=== PATIENT | female | born 1940 ===

== ENCOUNTER 2020-07-30 08:45 | Outpatient (REF) | payer MEDICARE, SELFPAY ==
[2020-07-30 12:30] LABS: Alanine Aminotransferase 15 U/L (0-31); Albumin Level 4.2 g/dL (3.5-5.0); Alkaline Phosphatase 103 U/L (39-117); Anion Gap 13 (12-20); Aspartate Amino Transferase 18 U/L (5-31); Bilirubin Total 0.8 mg/dL (0.0-1.0); Blood Urea Nitrogen 12 mg/dL (9-16); Calcium 9.4 mg/dL (8.4-10.2); Carbon Dioxide 27 mmol/L (22-29); Chloride 104 mmol/L (96-108); Cholesterol 246 mg/dL; Estimated Glomerular Filt Rate > 60; Glucose Fasting 96 mg/dL (60-99); HDL Cholesterol 76 mg/dL; LDL Cholesterol Calculated 153 mg/dl; Potassium 4.1 mmol/L (3.3-5.1); Sodium 140 mmol/L (135-145); Total Protein 6.9 g/dL (6.5-8.0); Triglycerides 89 mg/dL
== END 2020-07-30 08:46 | disposition home or self-care (01) ==
LOC: HO.HMGCLDS 08:45
PROVIDERS: PCP Internal Medicine; Visit Provider Internal Medicine
DX: E78.00 Pure hypercholesterolemia, unspecified (principal)
CPT/HCPCS: 36415; 80053; 80061

== ENCOUNTER 2020-08-05 12:52 | Outpatient (REF) | payer MEDICARE, SELFPAY ==
--- NOTE | ~2020-08-05 | XR_ITS ---
EXAMINATION: XR CHEST CLINICAL INFORMATION: Cough. COMPARISON: Chest 04/11/2017 TECHNIQUE: 2 views of the chest were obtained. FINDINGS: The lungs are well-expanded and clear of acute process. The heart size and pulmonary vascularity is normal. Multiple surgical nick overlie the left hemithorax. No gross bony abnormality seen. XR/XR chest 2V IMPRESSION: Unremarkable chest exam.
== END 2020-08-05 12:53 | disposition home or self-care (01) ==
LOC: HO.HMGCX 12:52
PROVIDERS: PCP Internal Medicine; Visit Provider Internal Medicine
DX: R05 Cough (principal)
CPT/HCPCS: 71046

== ENCOUNTER 2021-01-26 08:32 | Outpatient (REF) | payer MEDICARE, SELFPAY ==
[2021-01-26 11:44] LABS: MANUAL DIFF FLAG NO
[2021-01-26 11:54] LABS: Basophils Percent Auto 0.5 % (0-2); Eosinophils Absolute Auto 0.1 X10*3/uL (0.0-0.4); Eosinophils Percent Auto 1.2 % (0-4); Hematocrit 45.5 % (37.0-47.0); Hemoglobin 14.9 g/dl (12.0-16.0); Imm Gran Abs Auto 0.02 X10*3/uL (0.00-0.03); Imm Gran Pct Auto 0.3 % (0.0-0.4); Lymphocytes Absolute Auto 1.8 X10*3/uL (1.2-4.9); Lymphocytes Percent Auto 27.5 % (20-40); Mean Corpuscular HGB Conc 32.7 g/dl (31.0-35.0); Mean Corpuscular Volume 100.7 fL (80.0-98.0); Mean Platelet Volume 11.2 fL (9.4-12.3); Monocytes Absolute Auto 0.6 X10*3/uL (0.1-1.2); Neutrophils Percent Auto 61.5 % (45-73); Platelet Count 258 X10*3/uL (160-400); Red Blood Count 4.52 X10*6/uL (4.20-5.50); Red Cell Distribution Width 12.6 % (11.0-16.0); White Blood Count 6.5 X10*3/uL (4.8-10.8)
[2021-01-26 12:04] LABS: Alanine Aminotransferase 16 U/L (0-31); Albumin Level 4.1 g/dL (3.5-5.0); Alkaline Phosphatase 86 U/L (39-117); Anion Gap 14 (12-20); Aspartate Amino Transferase 20 U/L (5-31); Bilirubin Total 0.9 mg/dL (0.0-1.0); Blood Urea Nitrogen 15 mg/dL (9-16); Calcium 9.5 mg/dL (8.4-10.2); Carbon Dioxide 28 mmol/L (22-29); Chloride 105 mmol/L (96-108); Cholesterol 228 mg/dL; Estimated Glomerular Filt Rate > 60; Glucose Fasting 90 mg/dL (60-99); HDL Cholesterol 77 mg/dL; LDL Cholesterol Calculated 132 mg/dl; Potassium 4.5 mmol/L (3.3-5.1); Sodium 142 mmol/L (135-145); Total Protein 6.9 g/dL (6.5-8.0); Triglycerides 95 mg/dL
[2021-01-26 12:27] LABS: Thyroid Stimulating Hormone 1.72 uIU/mL (0.32-4.0); Vitamin D 25-OH Total 33.7 ng/mL (>30)
== END 2021-01-26 08:33 | disposition home or self-care (01) ==
LOC: HO.HMGCLDS 08:32
PROVIDERS: PCP Internal Medicine; Visit Provider Internal Medicine
DX: I10 Essential (primary) hypertension (principal); E78.00 Pure hypercholesterolemia, unspecified; R42 Dizziness and giddiness
CPT/HCPCS: 36415; 80053; 80061; 82306; 84443; 85025

== ENCOUNTER 2024-04-03 14:26 | Outpatient (AMB) | payer MEDICARE, SELFPAY ==
--- NOTE | 2024-04-03 14:24 | MHC.PC.OV ---
Vital Signs 04/03/24 14:50 Height 5 ft 4 in Weight 137 lb BMI 23.5 BP 136/84 Blood Pressure Location Rt brachial Position Sitting Pulse 61 Temp 97.2 F Pulse Oximetry (%) 99 Intake Visit Reasons: Cardiac valve prolapse Intake Note: Follow up for [facility] ED visit for burning chest pain. Discharge dx cardiac valve prolapse. Normal echocardiogram 1 week prior to ED visit. On Tuesday chest pressure and burning pain. Episode of vertigo and vomiting earlier this afternoon, h/o same. Accompanied by: Child Allergies aspirin Allergy (Verified 04/03/24 15:31) Shortness of Breath Medication List - Last Reconciled 04/03/24 by Zoya Hudson PA-C acetaminophen 500 mg PO Q6H PRN albuterol sulfate 90 mcg/actuation 2 puffs inhalation Q6H PRN ergocalciferol (vitamin D2) 50 mcg PO DAILY ketorolac 0.5% drps ophthalmic (eye) meclizine mg PO Physical exam (Primary Care) Vital Signs: Last Vital Signs Temp 97.2 F 04/03/24 14:50 Pulse 61 04/03/24 14:50 BP 136/84 04/03/24 14:50 Pulse Ox 99 04/03/24 14:50 BMI result Body Mass Index 23.5 Coding Level of Care Code New Pt Level 4 (18063) Complex EM visit Add On G2211 Diagnoses Severe mitral regurgitation by prior echocardiogram I34.0 Moderate tricuspid regurgitation by prior echocardiogram I07.1 Chest pain R07.9 Fatigue R53.83 Assessment & Plan Assessment & Plan (1) Severe mitral regurgitation by prior echocardiogram: Onset Date: ~03/30/24 Code(s): I34.0 - Nonrheumatic mitral (valve) insufficiency Category: Medical Plan: Found on echocardiogram. Condition is chronic and stable will continue to monitor and consult with Cardiology. (2) Moderate tricuspid regurgitation by prior echocardiogram: Onset Date: ~03/30/24 Code(s): I07.1 - Rheumatic tricuspid insufficiency Category: Medical Plan: Found on echocardiogram. Condition is chronic and stable will continue to monitor and consult with Cardiology. 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 Recently had evaluation at [facility] twice in the past 2 months with negative troponins of 13. Negative CTA. Ejection fraction with echocardiogram of 70 75% with severe mitral regurg and moderate tricuspid regurgitation. Has Cardiology follow-up with May 11. Patient denies any chest pain at this time. Condition is chronic and stable will continue to monitor. (4) Fatigue: Code(s): R53.83 - Other fatigue Category: Medical Plan: Condition is stable will continue to monitor. Plan Plan - Consult a pacs specialist to determine the appropriateness of initiating diuretic therapy due to the suspected mild congestive heart failure. - Consideration of earlier cardiology appointment than currently scheduled on May 11. - Maintain current medications: Tylenol, albuterol, vitamin D, meclizine. - Evaluate ongoing chest discomfort and fatigue in follow-up visits. - I consulted with Dr. Amaya the pacs specialist at [facility]. He reviewed the patient's chart. He agreed that the patient should be on Lasix 25 mg. He will attempt to schedule the patient for our office since patient is with us for primary care. I placed a referral for Cardiology. Dr. Amaya office will contact the patient to have her evaluated for possible cardiac catheterization. Orders: Referrals Cardiology Referral I07.1 - Rheumatic tricuspid insufficiency, I34.0 - Nonrheumatic mitral (valve) insufficiency, R07.9 - Chest pain, unspecified, R53.83 - Other fatigue Medications: New furosemide (Lasix) 20 mg PO DAILY 90 days 90 tabs 1RF Patient Instructions: Patient Instructions - Monitor and report any increase in chest pain, shortness of breath, or leg swelling. - Attend follow-up cardiology appointment as scheduled or earlier if contacted. - Continue current medications unless otherwise advised. - Maintain regular activities as tolerated, report any significant fatigue increase. - I consulted with Dr. Amaya the pacs specialist at [facility]. He reviewed the patient's chart. He agreed that the patient should be on Lasix 25 mg. He will attempt to schedule the patient for our office since patient is with us for primary care. I placed a referral for Cardiology. Dr. Amaya office will contact the patient to have her evaluated for possible cardiac catheterization. Scribe Plan - Not visible on output: History of Present Illness The patient is an 83-year-old female presenting with intermittent Left chest pain/pressure sensation along with generalized fatigue. She reports she had a syncopal episode back in February. At that time she went to the [facility] and they did a cardiac workup along with a CTA of her chest due to elevated D-dimer and her cardiac workup was negative and her CT was negative for PE. She was then sent home and brought back for an outpatient echocardiogram which revealed an ejection fraction of 70-75% with severe mitral regurgitation and moderate tricuspid regurgitation otherwise no other abnormalities. Then again on March 30 she started having the chest pain again therefore she went to [facility] to be evaluated. When she was at [facility] she had blood work where her 2 troponins were at 13. She had a BNP which was 593. Otherwise all her other labs were within normal limits and she was sent home with follow-up with Dr. Beckford cardiologists in [place] part of [facility]. She reports that the chest pain is intermittent and happens a proximally 2 times a day. Is not present at this time. She reports she is tired all the time even with little to no activity. She denies any shortness of breath, dyspnea on exertion, orthopnea, calf tenderness or leg swelling. 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 Prior evaluations have not required any changes to her current medications, which include Tylenol, albuterol, vitamin D, and meclizine. Social History - Lives independently since her 's passing. 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 - , resides in an apartment with wood floors. - Mother, grandmother, and great-grandmother with family ties in [place]. - Experiences regular fatigue, sleeps adequately in bed. Review of Systems - Cardiovascular: Reports chest pressure, denies leg swelling, shortness of breath. - General: Reports fatigue, denies significant change in activity tolerance. Physical Exam Appearance: Alert. Oriented X3. No acute distress. Head: Normal external exam. Normocephalic. Atraumatic. Eyes: Pupils are equal, round, and reactive to light. Extraocular movements intact. Conjunctiva and sclera normal. Eyelids normal. Ears: External auditory canal normal. Throat: Pharynx normal. Uvula midline. Moist mucous membranes. Neck: Normal inspection. Neck supple. Full range of motion. No adenopathy. Thyroid Normal. No meningeal signs. No neck mass noted. Cardiovascular: Normal heart rate and rhythm. Heart sound normal. Slight murmur noted. Pulses normal throughout. Respiratory: No respiratory distress. Painless inspiration. Breath sounds normal. No wheezes/rales/rhonchi noted. Chest nontender. No accessory muscle usage noted or decreased air movement noted. Back: Full range of motion noted. Skin: Skin warm and dry. Normal skin color. Normal skin turgor. No rashes/lesions/lacerations noted. Extremities: No lower extremity edema. Extremities exhibit normal range of motion. Extremities nontender. Neuro: Oriented X 3. No motor deficit. No sensory deficit. Reflexes normal. Results - Echocardiogram shows normal sinus rhythm, normal left ventricle size and thickness, ejection fraction 70-75%, moderate to severe mitral valve regurgitation, moderate tricuspid valve regurgitation. - BNP elevated at 598. - D-dimer initially elevated, subsequent CAT scan shows no pulmonary embolism. Plan - Consult a pacs specialist to determine the appropriateness of initiating diuretic therapy due to the suspected mild congestive heart failure. - Consideration of earlier cardiology appointment than currently scheduled on May 11. - Maintain current medications: Tylenol, albuterol, vitamin D, meclizine. - Evaluate ongoing chest discomfort and fatigue in follow-up visits. I consulted with Dr. Amaya the pacs specialist at [facility]. He reviewed the patient's chart. He agreed that the patient should be on Lasix 25 mg. He will attempt to schedule the patient for our office since patient is with us for primary care. I placed a referral for Cardiology. Dr. Amaya office will contact the patient to have her evaluated for possible cardiac catheterization. Patient was informed and verbally consented to the use of an ambient scribe for clinic note documentation during this visit. Discussion Notes During this visit, we thoroughly discussed the patient's ongoing chest pressure and fatigue. Despite previously completed diagnostics indicating significant cardiac valve disorder and signs of heart strain (BNP elevation), she remains generally asymptomatic regarding shortness of breath or peripheral edema. Given her echocardiogram findings, moderate to severe mitral and tricuspid valve regurgitation were noted. The possibility of starting a diuretic given mild heart failure signs was considered; however, I intend to confer with a pacs specialist before initiating treatment. The patient's allergy to aspirin makes it a non-option, and we discussed alternatives such as Plavix or hydrochlorothiazide. We have advised keeping her cardiology appointment on May 11 but will try to arrange an earlier consult if symptoms worsen. The patient acknowledged the importance of monitoring her symptoms and maintaining follow-up care, including her next appointment on the of this month. Patient Instructions - Monitor and report any increase in chest pain, shortness of breath, or leg swelling. - Attend follow-up cardiology appointment as scheduled or earlier if contacted. - Continue current medications unless otherwise advised. - Increase fluid intake to avoid potential urinary infections. - Maintain regular activities as tolerated, report any significant fatigue increase.
[2024-04-03 14:50] VITALS: BP 136/84; PULSE 61; TEMP 36.2; O2SAT 99; BMI 23.5
== END 2024-04-03 15:29 | disposition home or self-care (01) ==
PROVIDERS: PCP Internal Medicine; Visit Provider Physician Assistant Medical
DX: I34.0 Nonrheumatic mitral (valve) insufficiency (principal); I07.1 Rheumatic tricuspid insufficiency; R07.9 Chest pain, unspecified; R53.83 Other fatigue

== ENCOUNTER → 2024-04-03 14:26 | Outpatient (BNVA) | payer MEDICARE, SELFPAY | PROVIDERS: PCP Internal Medicine; Visit Provider Physician Assistant Medical | DX: I34.0 Nonrheumatic mitral (valve) insufficiency (principal); I07.1 Rheumatic tricuspid insufficiency; R07.9 Chest pain, unspecified; R53.83 Other fatigue | CPT/HCPCS: 99202 ==

== ENCOUNTER 2024-04-04 10:15 | Outpatient (AMB) | payer MEDICARE, SELFPAY ==
[2024-04-04 10:29] VITALS: BP 120/70; PULSE 71; BMI 22.5
--- NOTE | 2024-04-04 10:29 | MHC.OFFVIS ---
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 She has been getting left-sided chest discomfort for long time. She feels a pressure-like feeling in the episodes are quite prolonged. She recently went to [facility] where she was ruled out. At that time she had an echocardiogram performed which showed [id number] mitral valve regurgitation. LV function was preserved. She was on 20 mg Lasix. She is denying any shortness of breath. No orthopnea or PND. Her BNP values done at [facility] were quite elevated. She is not endorsing any clear heart failure symptoms other than fatigue which has been present for 4-5 months since she had hip fracture and surgery. [facility] Family History (Updated 04/04/24 @ 10:40 by Felicita Barrios CMA) Father Pacemaker Mother Postpolio syndrome Alzheimer dementia Social History (Updated 04/04/24 @ 10:40 by Felicita Barrios CMA) Alcohol intake: current Alcohol intake frequency: holidays/special occasions only Patient Tobacco Use Status: Never used Tobacco Review of Systems Const Denies chills, Denies fatigue, Denies fever(s), Denies frequent falls, Denies weakness, Denies weight gain and Denies weight loss ENT Reports dizziness Card Reports chest pain, Reports chest pain at rest, Reports chest pain with activity, Denies leg edema, Reports lightheadedness, Denies palpitations, Denies dyspnea, Denies dyspnea on exertion and Denies orthopnea Resp Denies cough, Denies dyspnea and Denies dyspnea on exertion GI Denies bloating and Denies change in bowel habits Musc Denies muscle weakness, Denies numbness and Denies tingling Neuro Reports dizziness, Denies frequent falls, Denies numbness, Denies tingling and Denies weakness Endo Denies fatigue and Denies palpitations Physical Exam Vital Signs: Last Vital Signs Pulse 71 04/04/24 10:29 BP 120/70 04/04/24 10:29 BMI result Body Mass Index 22.5 GENERAL APPEARANCE: in no acute distress, pleasant. Frail NECK: no carotid bruit, no jugular venous distention. SKIN: no suspicious lesions, warm and dry. HEART: no murmurs, regular rate and rhythm. LUNGS: clear to auscultation bilaterally. ABDOMEN: soft, nontender. EXTREMITIES: no edema. PERIPHERAL PULSES: equal. NEUROLOGIC: No gross deficits, AAO X 3 Office Procedures EKG Details: Normal sinus rhythm 71 beats per minute, normal axis, nonspecific ST segment changes, QTC 419 milliseconds. [id number], Complete Assessment & Plan Assessment & Plan (1) Fatigue: Code(s): R53.83 - Other fatigue Category: Medical (2) Chest pain: Code(s): R07.9 - Chest pain, unspecified Category: Medical (3) Severe mitral regurgitation by prior echocardiogram: Onset Date: ~03/30/24 Code(s): I34.0 - Nonrheumatic mitral (valve) insufficiency Category: Medical Plan 83-year-old female who is here for chest pain and fatigue. She has been getting left-sided pressure-like feeling for long time. She had some reproducible discomfort on the left side. Overall story is quite atypical and I think she has noncardiac chest pain. She has some fatigue ongoing since she had hip fracture. Symptoms can be due to deconditioning. Will do basic labs. I will review the echo. Thank you for allowing me to participate in the care of your patient. Please feel free to contact me if you have any questions. Orders: Orders TSH reflex Free T4 Today R53.83 - Other fatigue IRON PROFILE Today R53.83 - Other fatigue Ferritin Today R53.83 - Other fatigue B Type Natriuretic Peptide Today R53.83 - Other fatigue Coding Level of Care Code New Pt Level 4 (44223) Diagnoses Fatigue R53.83 Chest pain R07.9 Severe mitral regurgitation by prior echocardiogram I34.0 CPT Codes EKG - CPT: 97561-[id number], Complete ([id number])
--- OUTSIDE RECORDS SUMMARY | 2024-04-04 11:14 | XMS_ITS ---
Author Organization Kamran Angulo DO, FACP Address [address], [place] [id number] Care Team Providers Care Sales And Catering Coordinator Name Role Phone Kamran Angulo Primary Care Provider ALLERGIES Allergen (clinical drug ingredient) Drug/Non Drug Allergy documented on EMR Reaction Allergy Type Onset Date Status sulfa oral rash Drug Allergy Active lisinopril Lisinopril cough Drug Allergy Activ e aspirin Aspirin dyspnea Drug Allergy Active REASON FOR VISIT [facility] ED, follow-up after Emergency Room visit MEDICATIONS Medication SIG (Take, Route, Frequency, Duration) Notes Start Date End Date Status Albuterol Sulfate HFA 108 (90 Base) MCG/ACT 1 puff as needed Inhalation every 4 hrs Active Kat Allergy 180 MG 1 tablet as neede d Orally Once a day 09/24/2013 Active Multivitamin - 1 tablet Orally Once a day Active Vitamin D 1000 UNIT 1 capsule Orally Onc e a day Active SOCIAL HISTORY Tobacco Use: Social History Observation Description Date Details (start date - stop date) Never Smoker NA - NA Sex Assigned At : Social History Observation Description Sex Assigned At Unknown Tobacco Use/Smoking Question Answer Notes Patient is a nonsmoker Additional Findings: Tobacco Non-User Cu rrent non-smoker, currently using no form of tobacco Alcohol Screen Question Answer Notes Did you have a drink contain ing alcohol in the past year? Yes How often did you have a dri nk containing alcohol in the past year? Monthly or less (1 point) How many drinks did you have on a typical day when you were drinking in the past year? 1 or 2 drinks (0 point) How often did you have 6 or more drinks on one occasion in the past year? Never (0 point) Points 1 Interpretation Negative VITAL SIGNS BMI 23.69 kg/m2 02/28/2024 Blood pressure systolic 152 mm Hg 02/28/20 24 Blood pressure diastolic 72 mm Hg 024 Height 64 in 02/28/2024 Weight 138 lbs 02/28/2024 Encounters Encounter Location Date Provider Diagnosis Kamran Angulo , [address] [phone] 02/28/2024 Kamran Angulo Essential hypertensi on I10 ; Hypercholesterolemia E78.00 and Dizziness R42 ASSESSMENTS Encounter Date Diagnosis Assessment Notes Treatment Notes Treatment Clinical Notes 02/28/2024 Essential hypertensi on (ICD-10 - I10) 02/28/2024 Hypercholesterolemia (ICD-10 - E78.00) 02/28/2024 Dizziness (ICD-10 - R42) PLAN OF TREATMENT Medication Medication Name Sig Start Date Stop Date Notes Albuterol Sulfate HFA 108 (9 0 Base) MCG/ACT 1 puff as needed Inhalation every 4 hrs Kat Allergy 180 MG 1 tablet as neede d Orally Once a day 09/24/2013 Multivitamin - 1 tablet Orally Once a day Vitamin D 1000 UNIT 1 capsule Orally Once a day Pending Test Test Name Order Date BRAIN NATRIURETIC PEPTIDE (BNP) 02/28/20 24 CBC w DIFF 02/28/2024 Echocardiogram 02/28/2024 D Dimer 02/28/2024 Liver Panel 02/28/2024 Basic Metabolic Panel Fasting 02/28/2024 Lipid Panel 02/28/2024 Next Appt Details Follow Up: 4 Weeks, Reason: follow up visit Progress Notes * Examination Category Sub-Category Detail Notes General Examination GENERAL APPEARANCE: in no ac [place] distress, well developed, well nourished HEAD: normocephalic, atrau matic HEART: no murmurs, regular rate and rhythm, S1, S2 normal LUNGS: clear to auscultatio n bilaterally ABDOMEN: normal, bowel sounds present, soft, nontender, nondistended SKIN: warm and dry EXTREMITIES: no edema PSYCH: alert, oriented, cog nitive function intact
--- OUTSIDE RECORDS SUMMARY | 2024-04-04 11:15 | XMS_ITS ---
Author Organization Kamran Angulo DO, FACP Address [address] [place] [phone] Care Team Providers Care Client Support Analyst Name Role Phone Kamran Angulo Primary Care Provider REASON FOR VISIT 3 month f/u Encounters Encounter Location Date Provider Diagnosis Kamran Angulo DO, FACP [address] [place] [phone] 02/21/2024 Kamran Angulo PLAN OF TREATMENT No Information
--- OUTSIDE RECORDS SUMMARY | 2024-04-04 11:15 | XMS_ITS ---
Author Organization Kamran Angulo DO, FACP Address [address] [place], [place] [id number] Care Team Providers Care Customer Success Manager Name Role Phone Kamran Angulo Primary Care Provider ALLERGIES Allergen (clinical drug ingredient) Drug/Non Drug Allergy documented on EMR Reaction Allergy Type Onset Date Status sulfa oral rash Drug Allergy Active lisinopril Lisinopril cough Drug Allergy Activ e aspirin Aspirin dyspnea Drug Allergy Active REASON FOR VISIT preop, cataracts MEDICATIONS Medication SIG (Take, Route, Frequency, Duration) Notes Start Date End Date Status Albuterol Sulfate HFA 108 (90 Base) MCG/ACT 1 puff as needed Inhalation every 4 hrs Active Meclizine HCl 25 MG 1 tablet as needed O rally Three times a days 09/21/2023 Active Vitamin D 1000 UNIT 1 capsule Orally Onc e a day Active Multivitamin - 1 tablet Orally Once a day Active Kat Allergy 180 MG 1 tablet as neede d Orally Once a day 09/24/2013 Active SOCIAL HISTORY Tobacco Use: Social History [...] Never (0 point) Points 1 Interpretation Negative PROBLEMS Problem Type ICD Code Onset Dates Problem Status W/U Status Risk SNOMED Code Notes Problem Cataract of both eyes, unspecified cataract type (H26.9) Active confirmed [id number] VITAL SIGNS BMI 23.51 kg/m2 02/07/2024 Blood pressure systolic 140 mm Hg 02/07/20 24 Blood pressure diastolic 74 mm Hg 024 Height 64 in 02/07/2024 Weight 137 lbs 02/07/2024 Encounters Encounter Location Date Provider Diagnosis Kamran Angulo DO, [address] [phone] 02/07/2024 Kamran Angulo Cataract of both eyes, unspecified cataract type H26.9 and Dizziness R42 ASSESSMENTS Encounter Date Diagnosis Assessment Notes Treatment Notes Treatment Clinical Notes 02/07/2024 Cataract of both eyes, unspecified cataract type (ICD-10 - H26.9) Nathalia is an appropriate candidate for the proposed surgical procedure and is medically cleared for surgery 02/07/2024 Dizziness (ICD-10 - R42) PLAN OF TREATMENT Medication Medication Name Sig Start Date Stop Date Notes Albuterol Sulfate HFA 108 (9 0 Base) MCG/ACT 1 puff as needed Inhalation every 4 hrs Meclizine HCl 25 MG 1 tablet as needed O rally Three times a days 09/21/2023 Vitamin D 1000 UNIT 1 capsule Orally Once a day Multivitamin - 1 tablet Orally Once a day Kat Allergy 180 MG 1 tablet as neede d Orally Once a day 09/24/2013 Treatment Notes Assessment Notes Cataract of both eyes, unspe cified cataract type Nathalia is an appropriate candidate for t he proposed surgical procedure and is medically cleared for surgery Next Appt Details Follow Up: 2 Months, Reason: follow up visit Progress Notes * Examination Category Sub-Category Detail Notes General Examination GENERAL APPEARANCE: in no ac [place] distress, well developed, well nourished HEAD: normocephalic, atrau matic HEART: no murmurs, regular rate and rhythm, S1, S2 normal LUNGS: clear to auscultatio n bilaterally ABDOMEN: normal, bowel sounds present, soft, nontender, nondistended SKIN: warm and dry EXTREMITIES: no edema PSYCH: alert, oriented, cog nitive function intact
--- OUTSIDE RECORDS SUMMARY | 2024-04-04 11:15 | XMS_ITS ---
Author Organization [facility] on Address Unknown Allergies, Adverse Reactions, Alerts Substance Reaction Status Noted Date Resolved Date Gluten active 08/17/2023 Aspirin active 08/17/2023 Problems Problem Status Start Date End Date DISPLACED INTERTROCHANTERIC FRACTURE OF LEFT FEMUR, SUBSEQUENT ENCOUNTER FOR CLOSED FRACTURE WITH ROUTINE HEALING (Primary) (S72.142D - ICD-10-CM) ACTIVE 08/17/2023 ANEMIA, UNSPECIFIED (D64.9 - ICD-10-CM) ACTIVE 0 08/17/2023 BENIGN PAROXYSMAL VERTIGO, BILATERAL (H81.13 - ICD-10- CM) ACTIVE 08/17/2023 OTHER ASTHMA (J45.998 - ICD-10-CM) ACTIVE 2023 Encounters Encounter Performer Performer Role Encounter Diagnoses Location Date Discharge - Discharged to home or self care - Home (Agency Unknown) - Private home/apt. with home health services [facility] 08/17/2023 03:28 pm EDT - 09/02/2023 10:57 am EDT Immunizations Vaccine Date TB 1 Step Mantoux (PPD) 08/18/2023 05:15 am EDT TB 2 Step Mantoux Skin Test TB 2 Step Mantoux Skin Test 08/27/2023 1 0:15 am EDT Pneumococcal Polysaccharide Vaccine (PPS V23) Prevnar 20 Pneumococcal conjugate (PCV20 ) RSV, recombinant, protein subunit RSVpre F, adjuvant rec Influenza, high dose seasonal COVID-19, mRNA, LNP-S, PF, 50 mcg/0.5 mL 05/08/2020 12:00 am EST COVID-19, mRNA, LNP-S, PF, 50 mcg/0.5 mL 04/17/2020 12:00 am EST COVID-19 vaccine, vector-nr, rS-Ad26, PF , 0.5 mL Social History
--- OUTSIDE RECORDS SUMMARY | 2024-04-04 11:15 | XMS_ITS | Patient Health Record ---
Author Organization Kamran Angulo DO, FACP Address [address] [place] [phone] Care Team Providers Care Development Intern Name Role Phone Kamran Angulo Primary Care Provider [phone] ALLERGIES Allergen (clinical drug ingredient) Drug/Non Drug Allergy documented on EMR Reaction Allergy Type Onset Date Status sulfa oral rash Drug Allergy Active lisinopril Lisinopril cough Drug Allergy Activ e aspirin Aspirin dyspnea Drug Allergy Active REASON FOR REFERRAL No Information MEDICATIONS Medication SIG (Take, Route, Frequency, Duration) [...] capsule Orally Onc e a day Active IMMUNIZATIONS Vaccine Route Administration Date Status Comme nts Influenza IM Intramuscular 02/01/2011 Administered Pneumococcal - PPSV23 IM Intramuscular 02/01/2011 Administ ered Influenza Unknown 01/18/2014 Administered Influenza High Dose IM Intramuscular 11/18/2015 Administer ed Influenza High Dose IM Intramuscular 11/29/2016 Administer ed Influenza Unknown 12/21/2017 Administered Influenza High Dose IM Intramuscular 05/08/2019 Administer ed Influnza High Dose Quad Unknown 01/22/2020 Administered COVID-19 Pfizer BioNTech Unknown 04/17/2020 Administere d COVID-19 Pfizer BioNTech Unknown 05/08/2020 Administere d Influenza Unknown 12/02/2020 Refused Influenza Unknown 12/09/2021 Refused Influenza Unknown 03/02/2023 Refused SOCIAL HISTORY Tobacco Use: Social History Observation [...] W/U Status Risk SNOMED Code Notes Problem Essential hypertensi on (I10) Active confirmed 91273635 Problem Dizziness (R42) Active confirmed 940988 003 Problem Skin lesion (L98.9) Active confirmed 95 103125 Problem Hypercholesterolemia (E78.00) Active confirmed 54949502 Problem Cataract of both eye s, unspecified cataract type (H26.9) Active confirmed 65330235 Problem Left knee pain, unspecified chronicity (M25.562) Active confirmed 43069543 VITAL SIGNS Blood pressure diastolic 72 mm Hg 02/28/2024 Height 64 in 02/28/2024 Blood pressure systolic 152 mm Hg 02/28/2024 Weight 138 lbs 02/28/2024 BMI 23.69 kg/m2 02/28/2024 Encounters Encounter Location Date Provider Diagnosis Kamran Angulo DO, [address] [id number] 06/01/2023 Kamran Angulo DO, [address] [id number] 06/08/2023 Kamran Angulo Essential hypertensi on I10 ; Hypercholesterolemia E78.00 and Dizziness R42 Kamran Angulo DO, [facility] [address] [place], [place] [id number] 12/07/2023 Kamran Angulo DO, [address] [id number] 02/21/2024 Kamran Angulo DO, [address] [id number] 02/07/2024 Kamran Angulo Cataract of both eye s, unspecified cataract type H26.9 and Dizziness R42 Kamran Angulo DO, [address] [id number] 09/21/2023 Kamran Angulo Closed fracture of l eft hip, initial encounter S72.002A ; Dizziness R42 and Hypercholesterolemia E78.00 Kamran Angulo DO, [address] [id number] 02/28/2024 Kamran Angulo Essential hypertensi on I10 ; Hypercholesterolemia E78.00 and Dizziness R42 Kamran Angulo DO, [address] [id number] 05/17/2023 Kamran Angulo Dizziness R42 Kamran Angulo DO, [address] [id number] 09/06/2023 Kamran Angulo DO, [address] [id number] 09/06/2023 Kamran Angulo Essential hypertensi on I10 ; Dizziness R42 ; Hypercholesterolemia E78.00 and Other fatigue R53.83 Kamran Angulo DO, [address] [id number] 09/07/2023 Kmaran Angulo DO, [address] [id number] 12/06/2023 Kamran Angulo ASSESSMENTS Encounter Date Diagnosis Assessment Notes Treatment Notes Treatment Clinical Notes 06/08/2023 Essential hypertensi on (ICD-10 - I10) Low salt diet 06/08/2023 Hypercholesterolemia (ICD-10 - E78.00) Low cholesterol diet; written guidelines provided 02/07/2024 Dizziness (ICD-10 - R42) 02/07/2024 Cataract of both eye s, unspecified cataract type (ICD-10 - H26.9) Nathalia is an appropriate candidate for the proposed surgical procedure and is medically cleared for surgery 09/21/2023 Dizziness (ICD-10 - R42) 09/21/2023 Closed fracture of l eft hip, initial encounter (ICD-10 - S72.002A) Is doing well. Walks with a walker. Is getting PT. 02/28/2024 Essential hypertensi on (ICD-10 - I10) 02/28/2024 Hypercholesterolemia (ICD-10 - E78.00) 05/17/2023 Dizziness (ICD-10 - R42) 09/06/2023 Essential hypertensi on (ICD-10 - I10) 09/06/2023 Dizziness (ICD-10 - R42) 06/08/2023 Dizziness (ICD-10 - R42) Use s Meclizine prn dizziness 09/21/2023 Hypercholesterolemia (ICD-10 - E78.00) 02/28/2024 Dizziness (ICD-10 - R42) 09/06/2023 Hypercholesterolemia (ICD-10 - E78.00) 09/06/2023 Other fatigue (ICD-1 0 - R53.83) PLAN OF TREATMENT Pending Test Test Name Order Date BRAIN NATRIURETIC PEPTIDE (BNP) 02/28/20 CBC w DIFF 02/28/2024 Echocardiogram 02/28/2024 D Dimer 02/28/2024 Liver Panel 02/28/2024 Basic Metabolic Panel Fasting 02/28/2024 Lipid Panel 09/21/2023 Lipid Panel 02/28/2024 Insurance Providers Payer Name Payer Address Payer Phone Subscriber Number Group Number Insured Name Patient Relationship to Insured Coverage Start Date Coverage End Date MEDICARE [address] [place] [phone] [id number] Nathalia Camacho Self - patient is the insured [facility] OPTIONS [address] [place] [address] [phone] [id number] Nathalia Camacho Self - patient is the insured MEDICAL (GENERAL) HISTORY Medical History History ICD Code Essential hypertension hypercholesterolemia thyroid nodule vocal cord bowing with hoarseness gastroesophageal reflux disease (GERD) herniated lumbar disc obstructive airways 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
== END 2024-04-04 11:30 | disposition home or self-care (01) ==
PROVIDERS: PCP Internal Medicine; Visit Provider Internal Medicine Cardiovascular Disease
DX: R53.83 Other fatigue (principal); R07.9 Chest pain, unspecified; I34.0 Nonrheumatic mitral (valve) insufficiency
CPT/HCPCS: 93010; 99204

== ENCOUNTER 2024-04-04 10:15 | Outpatient (REF) | payer MEDICARE, SELFPAY ==
[2024-04-04 13:02] LABS: B Type Natriuretic Peptide 92 pg/mL (<100)
[2024-04-04 13:26] LABS: Iron 88 mcg/dL (30-160); Percent Iron Saturation 31 % (15-50); Total Iron Binding Capacity 281 mcg/dL (228-428); Unsaturated Iron Binding 193 ug/dL
[2024-04-04 13:49] LABS: Ferritin 326 ng/mL (10-250); TSH reflex Free T4 0.94 uIU/mL (0.32-4.0)
== END 2024-04-04 10:16 | disposition home or self-care (01) ==
LOC: HO.LAB 10:15
PROVIDERS: PCP Internal Medicine; Visit Provider Internal Medicine Cardiovascular Disease
DX: R07.89 Other chest pain (principal); R53.83 Other fatigue; I34.0 Nonrheumatic mitral (valve) insufficiency
CPT/HCPCS: 36415; 82728; 83540; 83880; 84443; 93005; 99202

== ENCOUNTER 2024-04-11 13:06 | Outpatient (AMB) | payer MEDICARE, SELFPAY ==
--- NOTE | 2024-04-11 13:10 | A.OFFPC_ITS ---
Vital Signs 04/11/24 13:20 Height 64 ft Weight 136 lb BMI 0.2 BP 138/68 Blood Pressure Location Rt brachial Pulse 74 Pulse Source Pulse Oximeter Temp 97.2 F Pulse Oximetry (%) 97 Intake Visit Reasons: 2 month follow up Intake Note: Still having left side pain and back pain sometimes she gets sharp twinge pain feeling and sometimes it thompson, has had acid reflux was wondering if that had something to do with it. Allergies aspirin Allergy (Verified 04/03/24 15:31) Shortness of Breath Medication List - Last Reconciled 04/11/24 by Zoya Hudson PA-C acetaminophen 500 mg PO Q6H PRN albuterol sulfate 90 mcg/actuation 2 puffs inhalation Q6H PRN cyclobenzaprine 5 mg PO BEDTIME ergocalciferol (vitamin D2) 50 mcg PO DAILY furosemide (Lasix) 20 mg PO DAILY 90 days ketorolac 0.5% drps ophthalmic (eye) lidocaine 5% (Lidoderm) 1 patch topical DAILY meclizine mg PO omeprazole 20 mg PO DAILY simethicone (Gas-X Extra Strength) 125 mg PO BEDTIME PRN PFSH Medical History History of humerus fracture History of fracture of left hip Surgical History History of tubal ligation History of meniscectomy of left knee History of appendectomy Family History Father Pacemaker Mother Postpolio syndrome Alzheimer dementia Social History Alcohol intake: current Alcohol intake frequency: holidays/special occasions only Patient Tobacco Use Status: Never used Tobacco Physical exam (Primary Care) Vital Signs: Last Vital Signs Temp 97.2 F 04/11/24 13:20 Pulse 74 04/11/24 13:20 BP 138/68 04/11/24 13:20 Pulse Ox 97 04/11/24 13:20 BMI result Body Mass Index 0.2 Tobacco/Smoking Status: Tobacco use Status Patient Tobacco Use Status Never used Tobacco 04/11/24 13:12 Coding Level of Care Code Est Pt Level 4 (11065) Complex EM visit Add On G2211 Diagnoses Essential hypertension I10 Mild hypercholesterolemia E78.00 Moderate tricuspid regurgitation by prior echocardiogram I07.1 Severe mitral regurgitation by prior echocardiogram I34.0 Thyroid nodule E04.1 GERD (gastroesophageal reflux disease) K21.9 Menieres disease H81.09 Chest wall pain R07.89 Assessment & Plan Assessment & Plan (1) Essential hypertension: Code(s): I10 - Essential (primary) hypertension Category: Medical Plan: Patient is currently on Lasix 25 mg taking as prescribed. Condition is chronic and stable will continue to monitor. (2) Mild hypercholesterolemia: Code(s): E78.00 - Pure hypercholesterolemia, unspecified Category: Medical Plan: Patient currently not on any cholesterol medications. Condition is chronic and stable will continue to monitor. (3) Moderate tricuspid regurgitation by prior echocardiogram: Onset Date: ~03/30/24 Code(s): I07.1 - Rheumatic tricuspid insufficiency Category: Medical Plan: Patient being followed by Cardiology Dr. Cavazos had a normal echocardiogram recently along with an ER visit with a negative workup. Patient was started on Lasix 25 mg taking as prescribed. Condition is chronic and stable will continue to monitor. (4) Severe mitral regurgitation by prior echocardiogram: Onset Date: ~03/30/24 Code(s): I34.0 - Nonrheumatic mitral (valve) insufficiency Category: Medical Plan: Patient being followed by Cardiology Dr. Cavazos had a normal echocardiogram recently along with an ER visit with a negative workup. Patient was started on Lasix 25 mg taking as prescribed. Condition is chronic and stable will continue to monitor. (5) Thyroid nodule: Code(s): E04.1 - Nontoxic single thyroid nodule Category: Medical Plan: Condition is chronic and stable will continue to monitor. (6) GERD (gastroesophageal reflux disease): Code(s): K21.9 - Gastro-esophageal reflux disease without esophagitis Category: Medical Plan: Patient will be started on omeprazole 20 mg daily. Condition is chronic and stable continue to monitor (7) Menieres disease: Code(s): H81.09 - Meniere's disease, unspecified ear Category: Medical Plan: Patient denies any acute dizziness at this time. Patient has meclizine 25 mg as needed along with Kat. Condition is chronic and stable will continue to monitor. (8) Chest wall pain: Code(s): R07.89 - Other chest pain Category: Medical Plan: Patient with chest pain that is reproducible on exam. Not cardiac related. Will start patient on Flexeril for muscle strain. Condition is chronic and stable will continue to monitor. Plan Plan - Continue monitoring and medication management for chest discomfort. - Initiate omeprazole for GERD management. - Consider Gas-x as needed for bloating. - Prescribe a muscle relaxant, Flexeril, for muscle discomfort. - Recommend use of a lidoderm patch for localized pain management. - Follow up on laboratory tests to assess sodium levels due to Lasix use. Orders: Orders Basic Metabolic Panel Today Z00.00 - Encounter for general adult medical examination without abnormal findings Medications: New lidocaine 5% (Lidoderm) leave on most painful area for up to 12 hrs 1 patch topical DAILY 15 ea 1RF cyclobenzaprine 5 mg PO BEDTIME 30 tabs 1RF muscle pain omeprazole 20 mg PO DAILY 90 caps 1RF simethicone (Gas-X Extra Strength) 125 mg PO BEDTIME PRN 90 caps 1RF abdominal distention Patient Instructions: Patient Instructions - Take omeprazole as prescribed daily to manage acid reflux. - Use Gasex as needed for symptoms of bloating. - Apply lidoderm patches following a 12-hour on/off routine. - Take Flexerol at night; monitor for excessive drowsiness or dizziness. - Continue with Lasix and watch for any change in symptoms. - Get blood tests done to check sodium levels. - Schedule a follow-up appointment in one month. - Monitor for any worsening of symptoms and seek care if needed. Scribe Plan - Not visible on output: History of Present Illness The patient is an 83-year-old female presenting for a follow-up exam from being seen earlier this month. Patient has been having left-sided/axillary chest wall pain for approximately 7-8 months although increased in the past 2 months. She was seen at the emergency department and had negative troponins, EKG and was discharged home with follow-up with PCP. She then seen me on 04/03/2024 and continued to have pain therefore I referred her to Dr. Cavazos to the hospice bereavement coordinator who seen the patient on 04/04/2024 and referred her for an echocardiogram. He believe that her chest wall pain was atypical and most likely related to deconditioning or muscle strains. She was started on Lasix and she is taking as prescribed. She reports during the day she normally does not have the chest discomfort although when she lays down at night this is when the chest discomfort and fatigue begin. The chest discomfort has been present intermittently and was exacerbated significantly last night when lying on her back. She reports previously feeling heaviness in the chest although she can still perform activities around the house without becoming short of breath. She denies any shortness of breath, dyspnea on exertion orthopnea. She denies any leg swelling. This discomfort has not worsened with increased physical activity but is more noticeable at rest, suggesting a potential musculoskeletal or gastrointestinal etiology. She has a history of lung surgery with residual surgical nick near the heart region. Her daughter at bedside reports that she notices the patient ex periences frequent burping, and she is wondering if the patient may have gastroesophageal reflux. Fatigue persists, worsened by a history of hip fracture. A comprehensive cardiac evaluation, including echocardiography, which revealed sinus rhythm, LV normal in size, normal LV wall thickness, ejection fraction of 70-75%, diastolic function was normal, RV systolic function normal and moderate to severe mitral GERD regurgitation and moderate tricuspid valve regurgitation otherwise no other acute processes were noted. Social History - Retired from hospice work, values minimal medication intake. - Resides in a supportive setting as she cannot drive. - Involved in activities of daily living, though limited post-surgery. - Nutritionally, consumes a fruit-rich breakfast and generally avoids salt. Review of Systems - Neurological: Reports vertigo. - Gastrointestinal: Reports frequent burping. - Genitourinary: Denies current urinary frequency issues. Physical Exam Appearance: Alert. Oriented X3. No acute distress. Head: Normal external exam. Normocephalic. Atraumatic. Eyes: Pupils are equal, round, and reactive to light. Extraocular movements intact. Conjunctiva and sclera normal. Eyelids normal. Ears: External auditory canal normal. Tympanic membranes normal. Throat: Pharynx normal. Uvula midline. Moist mucous membranes. Neck: Normal inspection. Neck supple. Full range of motion. No adenopathy. Thyroid Normal. No meningeal signs. No neck mass noted. Cardiovascular: Normal heart rate and rhythm. Heart sound normal. Pulses normal throughout. Respiratory: No respiratory distress. Painless inspiration. Breath sounds normal. No wheezes/rales/rhonchi noted. Patient with left upper and left axillary chest wall pain. There are no rashes. Not consistent with flail chest. No signs of trauma. No accessory muscle usage noted or decreased air movement noted. Abdomen: Soft and nontender. Bowel sounds normal in all 4 quadrants. No distention noted. No organomegaly noted. No visible injury noted. Back: No costovertebral angle tenderness. Full range of motion noted. Skin: Skin warm and dry. Normal skin color. Normal skin turgor. No rashes/lesions/lacerations noted. Extremities: No lower extremity edema. Extremities exhibit normal range of motion. Extremities nontender. Neuro: Oriented X 3. No motor deficit. No sensory deficit. Reflexes normal. Results - Echocardiogram: which revealed sinus rhythm, LV normal in size, normal LV wall thickness, ejection fraction of 70-75%, diastolic function was normal, RV systolic function normal and moderate to severe mitral GERD regurgitation and moderate tricuspid valve regurgitation otherwise no other acute processes were noted. Plan - Continue monitoring and medication management for chest discomfort. - Initiate omeprazole for GERD management. - Consider Gas-x as needed for bloating. - Prescribe a muscle relaxant, Flexeril, for muscle discomfort. - Recommend use of a lidoderm patch for localized pain management. - Follow up on laboratory tests to assess sodium levels due to Lasix use. Patient was informed and verbally consented to the use of an ambient scribe for clinic note documentation during this visit. Discussion Notes I discussed with the patient the findings that the chest discomfort appears unlikely to be cardiac in origin, given activity does not exacerbate the pain. We explored musculoskeletal and gastroesophageal reflux disease as possible contributors to her symptoms. I recommended starting omeprazole, Flexerol, and using a lidoderm patch for suspected musculoskeletal pain. The patient agreed to these management steps, expressing a preference for minimal medication. We also reviewed follow-up plans, discussing the importance of monitoring her sodium levels due to ongoing Lasix therapy. I provided reassurance that her fatigue, likely related to past events such as her hip fracture, will be monitored alongside her current therapeutic regimen. The patient was informed of potential muscle relaxant side effects and instructed on patch application intervals. Patient Instructions - Take omeprazole as prescribed daily to manage acid reflux. - Use Gasex as needed for symptoms of bloating. - Apply lidoderm patches following a 12-hour on/off routine. - Take Flexerol at night; monitor for excessive drowsiness or dizziness. - Continue with Lasix and watch for any change in symptoms. - Get blood tests done to check sodium levels. - Schedule a follow-up appointment in one month. - Monitor for any worsening of symptoms and seek care if needed.
[2024-04-11 13:20] VITALS: BP 138/68; PULSE 74; TEMP 36.2; O2SAT 97
--- OUTSIDE RECORDS SUMMARY | 2024-04-11 15:13 | XMS_ITS | Patient Health Record ---
Author Organization Kamran Angluo DO, FACP Address [address] [place] [phone] Care Team Providers Care Fabric Awning Repairer Name Role Phone Kamran Angulo Primary Care [...] Problem Essential hypertensi on (I10) Active confirmed 50139731 Problem Dizziness (R42) Active confirmed 266691 003 Problem Skin lesion (L98.9) Active confirmed 95 096022 Problem Hypercholesterolemia (E78.00) Active confirmed 05325306 Problem Cataract of both eye s, unspecified cataract type (H26.9) Active confirmed 96880294 Problem Left knee pain, unspecified chronicity (M25.562) Active confirmed 26784928 VITAL SIGNS Blood pressure diastolic 72 mm Hg 02/28/2024 Height 64 in 02/28/2024 Blood pressure systolic 152 mm Hg 02/28/2024 Weight 138 lbs 02/28/2024 BMI 23.69 kg/m2 02/28/2024 Encounters Encounter Location Date Provider Diagnosis Kamran Angulo DO, [address] [id number] 06/01/2023 Kamran Angulo DO, [address] [id number] 06/08/2023 Kamran Angulo Essential hypertensi on I10 ; Hypercholesterolemia E78.00 and Dizziness R42 Kamran Angulo DO, [facility] [address] [place], [place] [id number] 12/07/2023 Kamran Angulo DO, [address] [id number] 02/21/2024 Kamran Angulo DO, [address] [id number] 02/07/2024 Kamran Angulo Cataract of both eye s, unspecified cataract type H26.9 and Dizziness R42 Kamran Angulo DO, [address], [place] [id number] 04/11/2024 Kamran Angulo Kamran Willoughby Kev DO, [address] [id number] 09/21/2023 Kamran Angulo Closed fracture of l eft hip, initial encounter S72.002A ; Dizziness R42 and Hypercholesterolemia E78.00 Kamran Angulo DO, [address] [id number] 02/28/2024 Kamran Angulo Essential hypertensi on I10 ; Hypercholesterolemia E78.00 and Dizziness R42 Kamran Angulo DO, [address] [id number] 05/17/2023 Kamran Angulo Dizziness R42 Kamran Angulo DO, [address] [id number] 09/06/2023 Kamran Andrew Case Kev [facility], [address] [id number] 09/06/2023 Kamran Angulo Essential hypertensi on I10 ; Dizziness R42 ; Hypercholesterolemia E78.00 and Other fatigue R53.83 Kamran Angulo DO, [address] [id number] 09/07/2023 Kamran Angulo DO, [address] [id number] 12/06/2023 Kamran Angulo ASSESSMENTS Encounter Date Diagnosis [...] Coverage End Date MEDICARE [address] [place] [phone] [id number] Nathalia Caamcho Self - patient is the insured [facility] [employer] OPTIONS [address] [place] [address] [id number] Nathalia Camacho Self - patient is the [...]
--- OUTSIDE RECORDS SUMMARY | 2024-04-11 15:13 | XMS_ITS ---
Author Organization Kamran Angulo DO, FACP Address [address] [place] [address] [phone] Care Team Providers Care Poultry Tender Name Role Phone Kamran Angulo Primary Care Provider [phone] ALLERGIES Allergen (clinical drug ingredient) Drug/Non Drug [...] Location Date Provider Diagnosis Kamran Angulo , [address] [id number] 02/28/2024 Kamran Angulo Essential hypertensi on I10 [...] General Examination GENERAL APPEARANCE: in no ac cabazon distress, well developed, well nourished HEAD: normocephalic, atrau matic HEART: no murmurs, regular rate and rhythm, S1, S2 normal LUNGS: clear to auscultatio n bilaterally ABDOMEN: normal, bowel sounds present, soft, nontender, nondistended SKIN: warm and dry EXTREMITIES: no edema PSYCH: alert, oriented, cog nitive function intact
--- OUTSIDE RECORDS SUMMARY | 2024-04-11 15:13 | XMS_ITS ---
Author Organization Kamran Angulo DO, FACP Address [address] [place] [phone] Care Team Providers Care Intelligence Clerk Name Role Phone Kamran Angulo Primary Care Provider REASON FOR VISIT 3 month f/u Encounters Encounter Location Date Provider Diagnosis Kamran Angulo DO, FACP [address] [place] [address] [id number] 02/21/2024 Kamran Angulo PLAN OF TREATMENT No Information
--- OUTSIDE RECORDS SUMMARY | 2024-04-11 15:13 | XMS_ITS ---
Author Organization Kamran Angulo DO, FACP Address [address] [place] [phone] Care Team Providers Care Provider Network Analyst Name Role Phone Kamran Angulo Primary Care Provider REASON FOR VISIT 2 month f/u Encounters Encounter Location Date Provider Diagnosis Kamran Angulo DO, FACP [address] [place] [id number] 04/11/2024 Kamran Angulo PLAN OF TREATMENT No Information
== END 2024-04-11 14:06 | disposition home or self-care (01) ==
LOC: HO.HMCSH 13:07
PROVIDERS: PCP Internal Medicine; Visit Provider Physician Assistant Medical
DX: I10 Essential (primary) hypertension (principal); E78.00 Pure hypercholesterolemia, unspecified; I07.1 Rheumatic tricuspid insufficiency; I34.0 Nonrheumatic mitral (valve) insufficiency; E04.1 Nontoxic single thyroid nodule; K21.9 Gastro-esophageal reflux disease without esophagitis; H81.09 Meniere's disease, unspecified ear; R07.89 Other chest pain

== ENCOUNTER → 2024-04-11 13:06 | Outpatient (BNVA) | payer MEDICARE, SELFPAY | PROVIDERS: PCP Internal Medicine; Visit Provider Physician Assistant Medical | DX: I10 Essential (primary) hypertension (principal); E78.00 Pure hypercholesterolemia, unspecified; I07.1 Rheumatic tricuspid insufficiency; I34.0 Nonrheumatic mitral (valve) insufficiency; E04.1 Nontoxic single thyroid nodule; K21.9 Gastro-esophageal reflux disease without esophagitis; R07.89 Other chest pain; H81.09 Meniere's disease, unspecified ear | CPT/HCPCS: 99212 ==

== ENCOUNTER 2024-05-08 13:57 | Outpatient (AMB) | payer MEDICARE, SELFPAY ==
--- NOTE | 2024-05-08 14:09 | MHC.PC.OV ---
Vital Signs 05/08/24 14:31 Height 5 ft 3.75 in Weight 136 lb BMI 23.5 BP 134/74 Blood Pressure Location Rt brachial Pulse 70 Pulse Source Pulse Oximeter Temp 97.1 F Pulse Oximetry (%) 97 Intake Visit Reasons: 1 month follow up Intake Note: still has a burning in her chest did have vertigo this morning Allergies aspirin Allergy (Verified 05/08/24 15:06) Shortness of Breath IB profen Allergy (Uncoded 05/08/24 15:06) Headache Medication List - Last Reconciled 05/08/24 by Zoya Hudson PA-C acetaminophen 500 mg PO Q6H PRN albuterol sulfate 90 mcg/actuation 2 puffs inhalation Q6H PRN cyclobenzaprine 5 mg PO BEDTIME PRN ergocalciferol (vitamin D2) 50 mcg PO DAILY furosemide (Lasix) 20 mg PO DAILY 90 days ketorolac 0.5% drps ophthalmic (eye) lidocaine 5% (Lidoderm) 1 patch topical DAILY meclizine 25 mg PO PRN simethicone (Gas-X Extra Strength) 125 mg PO BEDTIME PRN turmeric root extract 300 mg PO DAILY PRN PFSH Medical History History of mammogram (~08/15/18) History of humerus fracture History of fracture of left hip Surgical History History of colonoscopy (~11/29/13) History of tubal ligation History of meniscectomy of left knee History of appendectomy Family History Father Pacemaker Mother Postpolio syndrome Alzheimer dementia Social History Alcohol intake: current Alcohol intake frequency: holidays/special occasions only Patient Tobacco Use Status: Never used Tobacco Physical exam (Primary Care) Vital Signs: Last Vital Signs Temp 97.1 F 05/08/24 14:31 Pulse 70 05/08/24 14:31 BP 134/74 05/08/24 14:31 Pulse Ox 97 05/08/24 14:31 Care Plan Goal for BP management: 130/80 BMI result Body Mass Index 23.5 normal bmi Tobacco/Smoking Status: Tobacco use Status Patient Tobacco Use Status Never used Tobacco 05/08/24 14:13 Coding Level of Care Code Est Pt Level 4 (94972) Complex EM visit Add On G2211 Diagnoses Chest wall pain R07.89 Menieres disease H81.09 GERD (gastroesophageal reflux disease) K21.9 Mild hypercholesterolemia E78.00 Essential hypertension I10 Moderate tricuspid regurgitation by prior echocardiogram I07.1 Severe mitral regurgitation by prior echocardiogram I34.0 Assessment & Plan Assessment & Plan (1) Chest wall pain: Code(s): R07.89 - Other chest pain Category: Medical Plan: Patient to continue Tylenol p.r.n., cyclobenzaprine 5 mg at bedtime p.r.n.. Patient to follow-up with [facility] as scheduled for her echocardiogram and her stress test on May 18. Results to be faxed over to us. Condition is chronic and stable and improving per patient will continue to monitor. (2) Menieres disease: Code(s): H81.09 - Meniere's disease, unspecified ear Category: Medical Plan: Patient has p.r.n. meclizine 25 mg. Condition is chronic and stable continue to monitor. (3) GERD (gastroesophageal reflux disease): Code(s): K21.9 - Gastro-esophageal reflux disease without esophagitis Category: Medical Plan: Patient currently on omeprazole 20 mg was not taking for a few days will restart the patient on omeprazole 20 mg. Condition is chronic and stable continue to monitor. (4) Mild hypercholesterolemia: Code(s): E78.00 - Pure hypercholesterolemia, unspecified Category: Medical Plan: Condition is chronic and stable continue to monitor. (5) Essential hypertension: Code(s): I10 - Essential (primary) hypertension Category: Medical Plan: BP Goal 130/80. Patient currently on furosemide 20 mg daily. Condition is chronic and stable continue to monitor. (6) Moderate tricuspid regurgitation by prior echocardiogram: Onset Date: ~03/30/24 Code(s): I07.1 - Rheumatic tricuspid insufficiency Category: Medical Plan: Patient being followed by cardiology at [facility]. Condition is chronic and stable continue to monitor. (7) Severe mitral regurgitation by prior echocardiogram: Onset Date: ~03/30/24 Code(s): I34.0 - Nonrheumatic mitral (valve) insufficiency Category: Medical Plan: Patient being followed by cardiology at [facility]. Condition is chronic and stable continue to monitor Plan Plan - Continue with scheduled chemical stress test and echocardiography on May 18 [facility] cardiology. - Adjust meclizine prescription to as needed basis for vertigo management. - Continue current cyclobenzaprine dosing for musculoskeletal discomfort. - Maintain use of tylenol as needed for pain. - Monitor for further episodes of nausea or vomiting; patient instructed to call 911 if similar episode occurs. 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 Orders: Orders Comprehensive [place]. Panel Fast Today Z00.00 - Encounter for general adult medical examination without abnormal findings Complete Blood Count Auto Diff Today Z00.00 - Encounter for general adult medical examination without abnormal findings C Reactive Protein Today Z00.00 - Encounter for general adult medical examination without abnormal findings TSH reflex Free T4 Today Z00.00 - Encounter for general adult medical examination without abnormal findings Vitamin B12 and Folate Today Z00.00 - Encounter for general adult medical examination without abnormal findings Vitamin B1 Today Z00.00 - Encounter for general adult medical examination without abnormal findings Lipid Panel Today Z00.00 - Encounter for general adult medical examination without abnormal findings Magnesium Today Z00.00 - Encounter for general adult medical examination without abnormal findings Vitamin D 25-OH Total Today Z00.00 - Encounter for general adult medical examination without abnormal findings Liver Panel Today Z00.00 - Encounter for general adult medical examination without abnormal findings Hemoglobin A1c Today Z00.00 - Encounter for general adult medical examination without abnormal findings Medications: Refilled omeprazole 20 mg PO DAILY 90 caps 1RF Patient Instructions: Patient Instructions - Continue taking cyclobenzaprine and tylenol as currently prescribed. - Follow up with the scheduled stress test and echocardiogram at [facility] as scheduled. - Use meclizine and albuterol inhaler as needed. - In the event of severe chest pain, persistent vomiting, or other concerning symptoms, seek immediate medical attention. - Await further instructions regarding driving assessment and follow-up evaluations. - Return for a follow-up visit in three months for reassessment. 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 Scribe Plan - Not visible on output: History of Present Illness The patient is an 83-year-old female presenting for follow-up of her chronic chest discomfort that she has been having. The discomfort, described as pressure with occasional burning, has been present intermittently since the last visit approximately two month's ago. Initially evaluated by myself and subsequently by a product development consultant, the discomfort was thought to be musculoskeletal in origin. The patient underwent a cardiological assessment, including a second opinion which recommended a chemical stress test and echocardiography scheduled for May 18. The patient reports sporadic episodes of chest pressure and burning, but no acute changes or worsening of symptoms since the initial presentation. Additional care was sought following concerns of a possible musculoskeletal origin from the initial cardiological consultation at [facility]. She will have the chemical stress test and echocardiogram on May 18 that [facility]. She reports that she has been taking the Tylenol and the cyclobenzaprine her pain has improved. She reports she still has mild burning sensation. She has not been taking the omeprazole. I believe the omeprazole will help with the burning sensation she has in her chest which is most likely related to GERD. Will represcribe and patient will start taking this omeprazole again daily. Recently, the patient experienced a solitary episode of waking up feeling very hot, followed by nausea and vomiting. The vomiting was noted to have contained two small masses but had not recurred since. The patient attributes this episode potentially to food intake. There are questions regarding possible acid reflux, for which the patient has previously been advised to use omeprazole. The patient's medical history includes a hip fracture last year, rendering her temporarily non-ambulatory and for which she underwent rehabilitation. She has also experienced vertigo managed with meclizine and reported a seizure/fainting episode for which she was advised not to drive. Further evaluation and restrictions on her driving privileges remain a topic of concern and discussion. When reviewing the application for disabled parking placard/plate it appears that Dr. Angulo checked off the medical condition as stated below is such of severity as to require a competency road test the clinical diagnosis at that time was left hip fracture in December. Hip fracture has completely healed. Therefore patient will need to take a competency road test to obtain her license again. I will discuss this with the patient Social History - Lives independently, with some support from family. - Supported by a partner who resides nearby. - Engages in regular activities such as salsa dancing. - Daughter helps with transportation due to driving restrictions. - Language barrier with partner; however, participates in community activities. Review of Systems - Neurological: Reports dizziness. - Gastrointestinal: Denies current nausea; occasional vomiting in past instance. - Musculoskeletal: Denies current acute swelling of joints. - Respiratory: Reports use of an albuterol inhaler as needed. - Medication: Reports use of cyclobenzaprine at night. Physical Exam Appearance: Alert. Oriented X3. No acute distress. Head: Normal external exam. Normocephalic. Atraumatic. Eyes: Pupils are equal, round, and reactive to light. Extraocular movements intact. Conjunctiva and sclera normal. Eyelids normal. Ears: External auditory canal normal. Tympanic membranes normal. Throat: Pharynx normal. Uvula midline. Moist mucous membranes. Neck: Normal inspection. Neck supple. Full range of motion. No adenopathy. Thyroid Normal. No meningeal signs. No neck mass noted. Cardiovascular: Normal heart rate and rhythm. Heart sound normal. No murmurs noted. Pulses normal throughout. Respiratory: No respiratory distress. Painless inspiration. Breath sounds normal. No wheezes/rales/rhonchi noted. Chest nontender. No accessory muscle usage noted or decreased air movement noted. Abdomen: Soft and nontender. Bowel sounds normal in all 4 quadrants. No distention noted. No organomegaly noted. No visible injury noted. Back: No costovertebral angle tenderness. Full range of motion noted. Skin: Skin warm and dry. Normal skin color. Normal skin turgor. No rashes/lesions/lacerations noted. Extremities: No lower extremity edema. Extremities exhibit normal range of motion. Extremities nontender. Neuro: Oriented X 3. No motor deficit. No sensory deficit. Reflexes normal. Results - Labs: Previous blood work was normal except elevated ferritin. - Tests and Diagnostics: Scheduled chemical stress test and echocardiography. Plan - Continue with scheduled chemical stress test and echocardiography on May 18. - Adjust meclizine prescription to as needed basis for vertigo management. - Continue current cyclobenzaprine dosing for musculoskeletal discomfort. - Maintain use of tylenol as needed for pain. - Monitor for further episodes of nausea or vomiting; patient instructed to call 911 if similar episode occurs. 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 Patient was informed and verbally consented to the use of an ambient scribe for clinic note documentation during this visit. Discussion Notes We discussed the options regarding her cardiac symptoms, reviewing the necessity and logistics of her stress test and echocardiography. The distinction of musculoskeletal pain related to her nocturnal discomfort was reviewed. We further discussed her vertigo management, changing the regimen of meclizine to as needed. Concerns about her driving were addressed, emphasizing the need for six months without fainting episodes and potential neurology referral to assess driving capability. The patient was advised that turmeric usage and acid reflux management with omeprazole should be continued if beneficial. Follow-up scheduled for three months, during which time we will reassess driving status and symptoms. The consideration of the adequacy of current medications and their necessity was addressed, ensuring non-interference with potential meditations affecting driving. Patient Instructions - Continue taking cyclobenzaprine and tylenol as currently prescribed. - Follow up with the scheduled stress test and echocardiogram. - Use meclizine and albuterol inhaler as needed. - In the event of severe chest pain, persistent vomiting, or other concerning symptoms, seek immediate medical attention. - Await further instructions regarding driving assessment and follow-up evaluations. - Return for a follow-up visit in three months for reassessment.
[2024-05-08 14:31] VITALS: BP 134/74; PULSE 70; TEMP 36.2; O2SAT 97; BMI 23.5
--- OUTSIDE RECORDS SUMMARY | 2024-05-08 17:28 | XMS_ITS ---
Author Organization Kamran Angulo DO, FACP Address [address] [place] [phone] Care Team Providers Care Video Game Technician Name Role Phone Kamran Angulo Primary Care Provider [phone] REASON FOR VISIT 2 month f/u Encounters Encounter Location Date Provider Diagnosis Kamran Angulo DO, FACP [address] [place] [id number] 04/11/2024 Kamran Angulo PLAN OF TREATMENT No Information
--- OUTSIDE RECORDS SUMMARY | 2024-05-08 17:28 | XMS_ITS ---
Author Organization Kamran Angulo DO, FACP Address [address] [place], [place] [id number] Care Team Providers Care Farmworker Vegetable Name Role Phone Kamran Angulo Primary Care [...] Location Date Provider Diagnosis Kamran Angulo , [address] [id number] 02/28/2024 Kamran Angulo Essential hypertensi on I10 [...] General Examination GENERAL APPEARANCE: in no ac rampart distress, well developed, well nourished HEAD: normocephalic, atrau matic HEART: no murmurs, regular rate and rhythm, S1, S2 normal LUNGS: clear to auscultatio n bilaterally ABDOMEN: normal, bowel sounds present, soft, nontender, nondistended SKIN: warm and dry EXTREMITIES: no edema PSYCH: alert, oriented, cog nitive function intact
--- OUTSIDE RECORDS SUMMARY | 2024-05-08 17:28 | XMS_ITS ---
Author Organization Kamran Angulo DO, FACP Address [address] [place] [phone] Care Team Providers Care French Professor Name Role Phone Kamran Angulo Primary Care Provider REASON FOR VISIT 3 month f/u Encounters Encounter Location Date Provider Diagnosis Kamran Angulo DO, FACP [address] [place] [id number] 02/21/2024 Kamran Angulo PLAN OF TREATMENT No Information
--- OUTSIDE RECORDS SUMMARY | 2024-05-08 17:29 | XMS_ITS | Patient Health Record ---
Author Organization Kamran Angulo DO, FACP Address [address] [place] [phone] Care Team Providers Care Sheriff Name Role Phone Kamran Angulo Primary Care Provider [phone] ALLERGIES Allergen (clinical drug ingredient) Drug/Non Drug [...] Problem Essential hypertensi on (I10) Active confirmed 36629996 Problem Dizziness (R42) Active confirmed 547840 003 Problem Skin lesion (L98.9) Active confirmed 95 441041 Problem Hypercholesterolemia (E78.00) Active confirmed 52796740 Problem Cataract of both eye s, unspecified cataract type (H26.9) Active confirmed 71277036 Problem Left knee pain, unspecified chronicity (M25.562) Active confirmed 69541676 VITAL SIGNS Blood pressure diastolic 72 mm Hg 02/28/2024 Height 64 in 02/28/2024 Blood pressure systolic 152 mm Hg 02/28/2024 Weight 138 lbs 02/28/2024 BMI 23.69 kg/m2 02/28/2024 Encounters Encounter Location Date Provider Diagnosis Kamran Angulo DO, [address] [id number] 06/01/2023 Kamran Angulo DO, [address] [id number] 06/08/2023 Kamran Angulo Essential hypertensi on I10 ; Hypercholesterolemia E78.00 and Dizziness R42 Kamran Angulo DO, [facility] [address] [place], [place] [id number] 12/07/2023 Kamran Angulo DO, [address] [id number] 02/21/2024 Kamran Angulo DO, [address] [id number] 02/07/2024 Kamran Angulo Cataract of both eye s, unspecified cataract type H26.9 and Dizziness R42 Kamran Angulo DO, [address], [place] [id number] 04/11/2024 Kamran Angulo Kamran Willoughby Kev DO, [address] [id number] 09/21/2023 Kamran Angulo Closed fracture of l eft hip, initial encounter S72.002A ; Dizziness R42 and Hypercholesterolemia E78.00 Kamran Angulo DO, [address] [id number] 02/28/2024 Kamran Angulo Essential hypertensi on I10 ; Hypercholesterolemia E78.00 and Dizziness R42 Kamran Angulo DO, [address] [id number] 05/17/2023 Kamran Angulo Dizziness R42 Kamran Angulo DO, [address] [id number] 09/06/2023 Kamran Andrew Case Kev [place], [address] [id number] 09/06/2023 Kamran Angulo Essential hypertensi on I10 ; Dizziness R42 ; Hypercholesterolemia E78.00 and Other fatigue R53.83 Kamran Angulo DO, [address] [id number] 09/07/2023 Kamran Angulo DO, [address] [id number] 12/06/2023 Kamran Angulo ASSESSMENTS Encounter Date Diagnosis [...] Coverage End Date MEDICARE [address] [place] [phone] [id number] Nathalia Camacho Self - patient is the insured [facility] [employer] [address] [place] [phone] [id number] Nathalia Camacho Self - patient is the [...]
== END 2024-05-08 15:05 | disposition home or self-care (01) ==
LOC: HO.HMCSH 13:57
PROVIDERS: PCP Internal Medicine; Visit Provider Physician Assistant Medical
DX: R07.89 Other chest pain (principal); H81.09 Meniere's disease, unspecified ear; K21.9 Gastro-esophageal reflux disease without esophagitis; E78.00 Pure hypercholesterolemia, unspecified; I10 Essential (primary) hypertension; I07.1 Rheumatic tricuspid insufficiency; I34.0 Nonrheumatic mitral (valve) insufficiency

== ENCOUNTER → 2024-05-08 13:57 | Outpatient (BNVA) | payer MEDICARE, SELFPAY | PROVIDERS: PCP Internal Medicine; Visit Provider Physician Assistant Medical | DX: R07.89 Other chest pain (principal); H81.09 Meniere's disease, unspecified ear; K21.9 Gastro-esophageal reflux disease without esophagitis; E78.00 Pure hypercholesterolemia, unspecified; I10 Essential (primary) hypertension; I07.1 Rheumatic tricuspid insufficiency; I34.0 Nonrheumatic mitral (valve) insufficiency | CPT/HCPCS: 99212 ==

== ENCOUNTER 2024-08-07 13:26 | Outpatient (AMB) | payer MEDICARE, SELFPAY ==
--- NOTE | 2024-08-07 13:29 | A.OFFPC_ITS ---
Vital Signs 08/07/24 13:36 Height 5 ft 3.75 in Weight 135 lb 0.2 oz BMI 23.4 BP 158/72 H Blood Pressure Location Rt brachial Pulse 64 Pulse Source Pulse Oximeter Temp 97.3 F Pulse Oximetry (%) 98 Intake Visit Reasons: 3 month f/u Allergies aspirin Allergy (Verified 08/07/24 14:28) Shortness of Breath IB profen Allergy (Uncoded 08/07/24 14:28) Headache Medication List - Last Reconciled 08/07/24 by Zoya Hudson PA-C acetaminophen 500 mg PO Q6H PRN albuterol sulfate 90 mcg/actuation 2 puffs inhalation Q6H PRN ergocalciferol (vitamin D2) 50 mcg PO DAILY furosemide (Lasix) 20 mg PO DAILY 90 days ketorolac 0.5% drps ophthalmic (eye) meclizine 25 mg PO PRN omeprazole 20 mg PO DAILY simethicone (Gas-X Extra Strength) 125 mg PO BEDTIME PRN turmeric root extract 300 mg PO DAILY PRN HPI 3 month f/u HPI Details The patient is an 83-year-old female presenting for a follow-up regarding recent blood test results and management of pre-existing conditions. She reports that recent metabolic panel testing showed elevated glucose levels, although attributed to being non-fasting. Her echocardiogram indicated mild mitral and moderate tricuspid regurgitation, which has existed previously but presents some improvement. Cardiac function remains within acceptable parameters, with an ejection fraction noted at 59%. A prior episode of vasovagal syncope linked to a urinary tract infection was discussed; this episode was triggered by infection-induced stress, occurring approximately six months prior. Orthopedically, the patient has a history of left hip surgery and reports ongoing recovery, currently requiring a cane only for safety during outdoor activities. Can we would like the paperwork filled to get her license back. It was taken away in the past by Dr. Angulo due to her history of her left hip surgery. She is fully recovered. Muscle spasms were evaluated, and current management includes use of muscle relaxants, which is now on an as-needed basis rather than continuous usage. Social History - Family status: Recently - Functional status: Independent, ambula jamaal without the need for a cane indoors; requires a cane outdoors for stability and security. - Nutritional intake: Not specified, but awareness of impact on glucose levels noted - Level of activity: Active in daily génesis ing skills, manages cooking and cleaning independently [facility] Medical History (Updated 08/07/24 @ 14:40 by Zoya Hudson PA-C) DNI (do not intubate) DNR (do not resuscitate) Mild mitral regurgitation History of mammogram (~08/15/18) History of humerus fracture History of fracture of left hip Surgical History History of colonoscopy (~11/29/13) History of tubal ligation History of meniscectomy of left knee History of appendectomy Family History Father Pacemaker Mother Postpolio syndrome Alzheimer dementia Social History Alcohol intake: current Alcohol intake frequency: holidays/special occasions only Patient Tobacco Use Status: Never used Tobacco Questionnaire PHQ-9 Over the last 2 weeks, how often have you been bothered by any of the following problems? 1. Little interest or pleasure in doing things: not at all 2. Feeling down, depressed, or hopeless: not at all 3. Trouble falling or staying asleep, or sleeping too much: not at all 4. Feeling tired or having little energy: several days 5. Poor appetite or overeating: not at all 6. Feeling bad about yourself - or that you are a failure or have let yourself or your family down: not at all 7. Trouble concentrating on things, such as reading the newspaper or watching television: not at all 8. Moving or speaking so slowly that other people could have noticed. Or the opposite - being so fidgety or restless that you have been moving around a lot more than usual: several days 9. Thoughts that you would be better off or of hurting yourself in some way: not at all Total score: 2 Depression Screening Interpretation: Negative Depression Screening Done: Yes 33149 - PHQ-9 Billing: Yes Source: Developed by Drs. Kamran Anne, America Varela, Facundo Pedro and colleagues, with an educational carol ann from [employer]. Thrive Questionnaire Date Thrive assessed: 08/07/24 I am a: Patient What is your living situation today?: I have a steady place to live Within the past 12 months, did the food you bought not last and you didn't have the money to get more?: Never true Within the past 12 months, did you worry whether your food would run out before you got money to buy more?: Never true Do you have trouble paying for medicines?: No Do you have trouble getting transportation to medical appointments?: No Do you have trouble paying your heating and electricity bill?: No Do you have trouble taking care of your child, family member or friend?: No Do you have trouble with day-to-day activities such as bathing, preparing meals, shopping, managing finances, etc.?: No Are you currently unemployed and looking for a job?: No Are you interested in more education?: No THRIVE Score: 0 AUDIT C Alcohol Use Questionnaire (AUDIT-C) 1. How often do you have a drink containing alcohol?: 2-4 times a month 2. How many drinks containing alcohol do you have on a typical day when you are drinking?: 1 or 2 3. How often do you have six or more drinks on one occasion?: Never Total Score: 2 Score Reviewed/Action Taken: No Review of Systems Const Details: - Cardiovascular: Reports past episodes of syncope; denies current syncope. - Gastrointestinal: Reports elevated glucose; denies significant gastrointestinal symptoms. - Musculoskeletal: Reports muscle spasms, now managed with decreased medication usage. - Urological: Reports past UTI with syncope; denies current urinary symptoms other than decreased frequency. - Integumentary: Denies significant symptoms. - Respiratory: Denies difficulty breathing or new respiratory issues; occasional use of inhaler. Physical exam (Primary Care) Vital Signs: Last Vital Signs Temp 97.3 F 08/07/24 13:36 Pulse 64 08/07/24 13:36 BP 158/72 H 08/07/24 13:36 Pulse Ox 98 08/07/24 13:36 Care Plan Goal for BP management: <140/90 BMI result Body Mass Index 23.4 Tobacco/Smoking Status: Tobacco use Status Patient Tobacco Use Status Never used Tobacco 08/07/24 13:36 normal bmi PHQ-9: PHQ-9 Score PHQ-9: Total score 2 08/07/24 13:42 Depression Screening Interpretation: Negative Thrive Assessment: Date of Thrive Assessment Date Thrive assessed 08/07/24 08/07/24 13:36 Const Other: Appearance: Alert. Oriented X3. No acute distress. Head: Normal external exam. Normocephalic. Atraumatic. Eyes: Pupils are equal, round, and reactive to light. Extraocular movements intact. Conjunctiva and sclera normal. Eyelids normal. Throat: Pharynx normal. Uvula midline. Moist mucous membranes. Neck: Normal inspection. Neck supple. Full range of motion. Cardiovascular: Normal heart rate and rhythm. Respiratory: No respiratory distress. Painless inspiration. Back: Full range of motion noted. Skin: Skin warm and dry. Normal skin color. Normal skin turgor. Extremities: Extremities exhibit normal range of motion. Neuro: Oriented X 3. No motor deficit. No sensory deficit. Reflexes normal. Results Reviewed Results Reviewed: - Labs: Comprehensive metabolic panel showing elevated glucose - Echocardiogram: Ejection fraction at 59%, mild mitral and moderate tricuspid regurgitation. Coding Level of Care Code Est Pt Level 4 (95615) Complex EM visit Add On G2211 Diagnoses Moderate tricuspid regurgitation by prior echocardiogram I07.1 Mild mitral regurgitation I34.0 Essential hypertension I10 DNR (do not resuscitate) Z66 DNI (do not intubate) Z78.9 Additional Codes PHQ-9 - 96553 - PHQ-9 Billing: Yes ([id number]) Time Spent (min) 45 Assessment & Plan Assessment & Plan (1) Moderate tricuspid regurgitation by prior echocardiogram: Onset Date: ~03/30/24 Code(s): I07.1 - Rheumatic tricuspid insufficiency Category: Medical Plan: Recent echocardiogram revealed consistent moderate tricuspid regurg with ejection fraction of 59%. Patient being followed by Cardiology. Has bike mechanic appointment tomorrow Condition is chronic and stable continue to monitor. (2) Mild mitral regurgitation: Code(s): I34.0 - Nonrheumatic mitral (valve) insufficiency Category: Medical Plan: Recent echocardiogram revealed improvement in the patient's mitral regurgitation from severe to mild. Ejection fraction 59%. Patient being followed by Cardiology. Ejection fraction 59%. Has cardiology appointment tomorrow. Condition is chronic and stable continue to monitor. (3) Essential hypertension: Code(s): I10 - Essential (primary) hypertension Category: Medical Plan: Emphasized consistent medication adherence and blood pressure monitoring at home. Patient to continue Lasix 20 mg daily. Blood pressure goal less than 140/90. Condition is chronic and stable continue to monitor. (4) DNR (do not resuscitate): Code(s): Z66 - Do not resuscitate Category: Medical Plan: Patient filled out a new [employer] form today. She is DNR/DNI. Daughter at bedside. (5) DNI (do not intubate): Code(s): Z78.9 - Other specified health status Category: Medical Plan: Patient filled out a new [employer] form today. She is DNR/DNI. Daughter at bedside. Plan Plan Patient was informed and verbally consented to the use of an ambient scribe for clinic note documentation during this visit. 1. Elevated Blood Glucose Interpret non-fasting glucose results carefully, emphasizing dietary monitoring. Reinforcement of avoiding high-carb foods pretesting: repeat evaluations as needed. 2. Tricuspid Valve Regurgitation Observational follow-ups sufficient with no immediate interventions required due to stable echocardiogram parameters. 3. Mitral Valve Regurgitation Continue monitoring with cardiology follow-ups recommended to track any significant changes. 4. Vasovagal Syncope Reinforced hydration and stress management strategies post-UTI episode to prevent recurrence. 5. Urinary Tract Infection Uti Education on recognizing symptoms, maintaining hydration, and reducing risk factors for recurrence provided. 6. History Of Left Hip Surgery Encourage continuation of functional mobility exercises and use of outdoor ambulation aids as needed. 7. Hypertension Emphasized consistent medication adherence and blood pressure monitoring at home. 8. Muscle Spasms Described Flexeril use limitations for acute pain episodes only with review of symptoms management. I discussed with the patient her recent test results, including the interpretation of slightly elevated glucose levels as likely non-fasting. We examined her echocardiogram findings, elaborating on mild mitral and moderate tricuspid regurgitation, and confirmed these findings were not of immediate concern due to stable indicators. The significance of continuous monitoring was emphasized alongside a clear action plan for managing current symptoms. I reinforced the importance of maintaining hydration and monitoring related to vasovagal syncope triggers, primarily linked to past urinary tract infection episodes. Given her history of left hip surgery, we discussed safety practices for mobility and the correct usage of medications in managing muscle spasms, p articularly the as-needed basis for Flexeril. I endorsed the importance of leaving the muscle relaxant in place on her list for situations requiring immediate response. To enhance her understanding of self-care management, I advocated the use of Gas-X and water pills for her gastrointestinal and hypertensive indications, respectively. The patient was counselled extensively on her active prescriptions, delivering relevant updates in accordance with recent needs and experiences. A similar update was provided for her advance directives, ensuring legal documentation matches her requests regarding situations of increased emergency interventions require such as transportation to hospital and adjusting her [id number] order only in terms of noninvasive ventilation acceptance. Medications: New albuterol sulfate 90 mcg/actuation 2 puffs inhalation Q6H PRN 8.5 grams 1RF bronchospasm Discontinued lidocaine 5% (Lidoderm) leave on most painful area for up to 12 hrs Discontinued Reason: Doctor's Order 1 patch topical DAILY 15 ea 1RF Patient Instructions: - Take Gas-X as needed for bloating or discomfort. - Continue prescribed water pill daily to manage blood pressure. - Avoid high-carbohydrate intake when preparing for fasting blood glucose tests. - Use Flexeril only during acute muscle spasm episodes. - For high blood pressure, maintain medication as directed and monitor levels at home. - Contact the office if you notice changes in symptoms like swelling or shortness of breath. - Stay hydrated, especially during the hot summer months. - Use your cane outdoors for added stability. - Consider a six-month follow-up unless you experience new symptoms or require a medication refill.
[2024-08-07 13:36] VITALS: BP 158/72; PULSE 64; TEMP 36.3; O2SAT 98; BMI 23.4
== END 2024-08-07 14:11 | disposition home or self-care (01) ==
LOC: HO.HMCSH 13:26
PROVIDERS: PCP Internal Medicine; Visit Provider Physician Assistant Medical
DX: I07.1 Rheumatic tricuspid insufficiency (principal); I34.0 Nonrheumatic mitral (valve) insufficiency; I10 Essential (primary) hypertension; Z66 Do not resuscitate; Z78.9 Other specified health status

== ENCOUNTER → 2024-08-07 13:26 | Outpatient (BNVA) | payer MEDICARE, SELFPAY | PROVIDERS: PCP Internal Medicine; Visit Provider Physician Assistant Medical | DX: I07.1 Rheumatic tricuspid insufficiency (principal); I34.0 Nonrheumatic mitral (valve) insufficiency; I10 Essential (primary) hypertension; Z66 Do not resuscitate; Z78.9 Other specified health status | CPT/HCPCS: 96127; 99212 ==